=== PATIENT | male | born 2000 | race African-American/Black ===

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

== ENCOUNTER 2024-03-18 02:04 | Emergency (ER) | payer MEDICAID ==
[2024-03-18 02:10] VITALS: TEMP 99.2; O2SAT 98
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
[2024-03-18 04:11] VITALS: RESP 20
[2024-03-18] MEDS ORDERED: TYLENOL 325 MG ONE (04:25)
[2024-03-18] MEDS: TYLENOL 325 MG PO STA (04:25)
--- NOTE | 2024-03-18 04:35 | XRAY ---
CLINICAL HISTORY: headache COMPARISON: None. TECHNIQUE: Axial non-contrast CT scan of the brain was performed from the skull base to the high parietal region. One of the following dose reduction techniques were utilized for this exam: Automated exposure control, adjustment of the mA and/or kV according to patient size, use of iterative reconstruction. FINDINGS: Brain Parenchyma: Normal attenuation of the cerebral hemispheres, cerebellum, and brainstem. No evidence of acute infarct, hemorrhage, or mass effect. No abnormal areas of hypo- or hyperattenuation. Ventricular System: Ventricles are normal in size and configuration. No evidence of hydrocephalus or ventricular enlargement. Subarachnoid Spaces: Normal sulci and cisterns. No evidence of subarachnoid hemorrhage or extra-axial fluid collections. Cerebellum and Brainstem: Normal size and signal. No masses, lesions, or areas of abnormal signal. Orbits: Normal appearance of the globes, optic nerves, and extraocular muscles. No evidence of orbital masses or abnormal signal. Sinuses: Clear paranasal sinuses. No evidence of sinusitis or mucosal thickening. Mild hypertrophy of the left middle and inferior nasal turbinates. Mild deviation of the nasal septum is identified towards the right side. Mastoid Air Cells: Clear mastoid air cells. No evidence of mastoiditis. Skull and Meninges: Normal skull morphology. IMPRESSION: 1. No evidence of acute intracranial hemorrhage, territorial infarction or mass-effect. 2. Mild deviation of nasal septum towards the right side. Electronically Signed by: Lenny Lerma MD. (03/18/2024 04:31:10 EDT)
--- NOTE | 2024-03-18 04:50 | XRAY ---
CLINICAL HISTORY: neck pain COMPARISON: No previous studies are available for comparison. TECHNIQUE: CT scan of the cervical spine was performed without the administration of intravenous contrast. Contiguous axial images were obtained from the skull base to the upper thoracic spine. Coronal and sagittal reformatted images were also reviewed. One of the following dose-reduction techniques was utilized for this exam. Automated exposure control, adjustment of the mA and/or kV according to patient size, and use of iterative reconstruction. FINDINGS: Vertebrae: Straightening of cervical lordosis is noted, likely due to muscle spasm. The vertebral bodies are normal in height and alignment. No evidence of acute fracture or dislocation. The cortical and trabecular bone patterns are normal. No signs of lytic or sclerotic lesions. Normal configuration of the posterior elements. Intervertebral Discs: The intervertebral disc spaces are preserved. No evidence of significant disc bulging or herniation. No calcifications or ossifications were noted within the discs. Facet Joints: The facet joints are normal without evidence of dislocation, subluxation, or significant degenerative changes. Neural Foramina: The neural foramina is patent bilaterally at all levels. No evidence of foraminal narrowing or nerve root compression. Prevertebral Soft Tissues: The prevertebral soft tissues are normal in thickness without evidence of mass or abnormal fluid collection. Additional Findings: Bilateral elongation of the styloid process up to 30 mm, which could refer to [place] syndrome. IMPRESSION: 1. No evidence of acute fracture, dislocation, or significant degenerative changes. 2. Straightening of cervical lordosis is noted, likely due to muscle spasm. 3. Bilateral elongation of the styloid process up to 30 mm, which could refer to [place] syndrome. Electronically Signed by: Lenny Lerma MD. (03/18/2024 04:46:26 EDT)
--- NOTE | 2024-03-18 04:54 | XRAY ---
CLINICAL HISTORY: abd pain COMPARISON: No prior studies available for comparison. TECHNIQUE: Non-contrast CT of the abdomen and pelvis was performed, with the following protocol: axial images, and reconstructed coronal and sagittal images. One of the following dose reduction techniques was utilized for this exam: Automated exposure control, adjustment of the mA and/or kV according to patient size, and use of iterative reconstruction. FINDINGS: Abdomen: Liver: Normal in size, shape, and density. No focal lesions, cysts, or masses were identified. Gallbladder and Biliary System: The gallbladder is normal in size and shape. No wall thickening, pericholecystic fluid, or gallstones were identified. Pancreas: Pancreatic head, body, and tail are visualized and appear normal in size and density. No pancreatic masses or calcifications were noted. Spleen: Normal in size, shape, and density. No splenic lesions or masses were identified. Kidneys and Adrenal Glands: Both kidneys are normal in size, shape, and position. Cortical thickness is within normal limits. No renal calculi or hydronephrosis. Adrenal glands are unremarkable. Abdominal Aorta and Vessels: The abdominal aorta and major branches are patent without evidence of an aneurysm or significant atherosclerosis. Pelvis: Urinary Bladder: Normal in contour and wall thickness. Prostate: Normal in size and contour. Peritoneal and Retroperitoneal Structures: Multiple mesenteric predominantly ileo-colic lymph nodes largest seen in the right iliac fossa measured about 1 cm in short axis. Mild stranding of the surrounding fat planes. No free fluid or abnormal fluid collections were identified within the abdomen or pelvis. No lymphadenopathy was noted. Bowel: Moderate colonic fecal loading. The visualized bowel loops are normal in caliber and appearance. No evidence of bowel obstruction or wall thickening. The appendix is unremarkable. No signs of acute appendicitis. Bones and Soft Tissues: Tiny bone island seen in the right femoral neck. Pelvic bones and soft tissues are unremarkable. No fractures or abnormal masses were identified. IMPRESSION: 1. No radiological signs of acute appendicitis. 2. Multiple mesenteric predominantly ileo-colic lymph nodes, the largest seen in the right iliac. Non-specific finding but could suggest lymphadenitis need clinical/lab correlation. Electronically Signed by: Lenny Lerma MD. (03/18/2024 04:50:22 EDT)
[2024-03-18 05:03] VITALS: BP 130/85; PULSE 111
== END 2024-03-18 05:16 | disposition home or self-care (01) ==
LOC: ED 02:04
DX: M54.2 Cervicalgia (principal); M62.838 Other muscle spasm; R10.9 Unspecified abdominal pain; V48.6XXA Car passenger injured in noncollision transport accident in traffic accident, initial encounter; Z72.0 Tobacco use
CPT/HCPCS: 70450; 72125; 74176; 99284; 99285; A9270-GY